=== PATIENT | female | born 1975 | race Two or more races ===

== ENCOUNTER 2018-05-21 15:37 | Inpatient (IN) | payer OTHER ==
[~2018-05-21] VITALS: Ht 157.5 cm; Wt 72.1 kg
[~2018-05-21 15:37] MED LIST: IMITREX50 MG PO
[2018-05-21] MEDS ORDERED: SYNTHROID175 MCG PO (16:26)
[2018-05-21] MEDS ORDERED: CABERGOLINE0.5 MG (17:17)
[2018-05-28] MEDS ORDERED: OXYC1TAB9 PO (06:21)
== END 2018-05-28 09:25 | disposition home or self-care (01) | DRG 743 ==
LOC: OB/GYN 05-26 09:13 → O/R 05-26 09:13 → OB/GYN 05-26 11:00
PROVIDERS: ADMIT Specialist
PROC: 0UT70ZZ Resection of Bilateral Fallopian Tubes, Open Approach (ICD-10-PCS; 2018-05-26)
PROC: 0UT20ZZ Resection of Bilateral Ovaries, Open Approach (ICD-10-PCS; 2018-05-26)
PROC: 0USG0ZZ Reposition Vagina, Open Approach (ICD-10-PCS; 2018-05-26)
PROC: 0UT90ZZ Resection of Uterus, Open Approach (ICD-10-PCS; principal; 2018-05-26 11:00)
DX: D25.1 Intramural leiomyoma of uterus (principal); D25.0 Submucous leiomyoma of uterus; N80.0 Endometriosis of uterus; N92.0 Excessive and frequent menstruation with regular cycle; G43.809 Other migraine, not intractable, without status migrainosus